=== PATIENT | male | born 1990 | race Hispanic/Latino ===

== ENCOUNTER 2024-12-27 14:17 | Emergency (ER) | payer OTHER ==
[2024-12-27] MEDS ORDERED: HYDROCODONE/APAP 5/325 MG TAB ONE (15:26)
--- NOTE | 2024-12-27 16:33 | RAD REPORT ---
Extremity Venous Uni Ltd CLINICAL INDICATION: Male, 34 years old.Pain;Swelling TECHNIQUE: Complete duplex sonography of the lower extremity veins was performed of the affected limb . The examination included compression for vein patency, color Doppler imaging and flow augmentation in response to distal compression of the distal external iliac, common femoral, femoral, popliteal, peroneal, tibial and great saphenous veins. [id number]. COMPARISON: No prior exams FINDINGS: Duplex sonography imaging demonstrates all deep veins examined to be fully compressible with spontane ous, phasic and augmented flow in the affected limb. IMPRESSION: No evidence of deep venous thrombosis in the left lower extremity.
--- NOTE | 2024-12-27 16:37 | RAD REPORT ---
EXAM: Knee Left 3 View INDICATION: fall;Pain COMPARISON: None FINDINGS: Tibial plateau fracture which is likely a split component laterally with transverse component extendi ng into the medial tibial plateau.. Moderate knee effusion. Distal femur appears intact. Other: n/a IMPRESSION: Tibial plateau fracture involving the medial and lateral tibial plateau. Recommend CT for further eddie luation.
--- NOTE | 2024-12-27 18:31 | RAD REPORT ---
EXAMINATION: Knee Left Wo Con CLINICAL INDICATION: Male, 34 years old.Tibial plateau fracture TECHNIQUE: CT above extremity was performed without contrast. Reformats were performed. One or more o f the following dose reduction techniques were used: Automated exposure control, adjustment of the mA and/or kV according to patient size, and/or iterative reconstruction. Unless otherwise specified, incidental findings do not require dedicated imaging follow-up. [id number]. COMPARISON: Same-day knee radiograph FINDINGS: Complex fracture involving the tibial plateau. There is a split type component involving the lateral tibial plateau with approximately 3 mm of articular surface depression at the lateral tibial plateau. There is a transverse component which extends into the medial tibial metaphysis and involves the anterior medial tibial plateau. There is a nonaggressive lesion in the posterior medial aspect of the tibial metaphysis which may represent a benign fibro-osseous lesion. The proximal fibula is in tact. Lipohemarthrosis is present. The patella is intact. The femur is intact. IMPRESSION: Tibial plateau fracture involving both the medial and lateral tibial plateau. The lateral tibial plat eau has a split-type fracture with some articular surface depression.
--- NOTE | 2024-12-27 18:34 | ER ---
Nurse's Notes [facility] Name: Maximo Taylor Age: 34 yrs Sex: Male : 1990 Arrival Date: 12/27/2024 Time: 14:17 Bed DX3 Private MD: Diagnosis: Left tibial plateau fracture;Fall on same level, unspecified Presentation: 12/27 15:13 Chief complaint: Tripped on concrete and landed on left knee 2 nights ago, c/o left hb knee pain and swelling 8/10. Unable to bear weight on left leg. Coronavirus screen: At this time, the client does not indicate any symptoms associated with coronavirus-19. Ebola Screen: No symptoms or risks identified at this time. Initial Sepsis Screen: Does the patient meet any 2 criteria? No. Patient's initial sepsis screen is negative. Does the patient have a suspected source of infection? No. Patient's initial sepsis screen is negative. Risk Assessment: Do you want to hurt yourself or someone else? Patient reports no desire to harm self or others. Onset of symptoms was December 25, 2024. 15:13 Method Of Arrival: Wheelchair hb 15:13 Acuity: MACK 4 hb Triage Assessment: 19:24 General: Appears uncomfortable, Behavior is calm, cooperative. Pain: Complains of pain ha1 in lateral aspect of left knee Pain currently is 10 out of 10 on a pain scale. Quality of pain is described as throbbing. Neuro: Level of Consciousness is awake, alert, obeys commands, Oriented to person, place, time, situation. Cardiovascular: Capillary refill < 3 seconds Patient's skin is warm and dry. Respiratory: Airway is patent Respiratory effort is even, unlabored, Respiratory pattern is regular, symmetrical. Historical: - Allergies: 15:16 No Known Allergies; hb - Home Meds: 15:16 None [Active]; hb - PMHx: 15:16 None; hb - PSHx: 15:16 None; hb - Immunization history:: Adult Immunizations up to date. - Infectious Disease History:: Denies. - Social history:: Smoking status: Patient denies any tobacco usage or history of. Screenin:[address] [facility] ED Fall Risk Assessment (Adult) History of falling in the last 3 months, ha1 including since admission No falls in past 3 months (0 pts) Confusion or Disorientation No (0 pts) Intoxicated or Sedated No (0 pts) Impaired Gait Yes (1 pt) Mobility Assist Device Used Yes (1 pt) Altered Elimination No (0 pt) Score/Fall Risk Level 0 - 2 = Low Risk Oriented to surroundings, Maintained a safe environment, Educated pt \T\ family on fall prevention, incl call for assistance when getting out of bed, Hourly rounding (assess needs \T\ fall precautionary measures) done. Abuse screen: Denies threats or abuse. Denies injuries from another. Nutritional screening: No deficits noted. Tuberculosis screening: No symptoms or risk factors identified. Assessment: 19:23 Reassessment: Patient and/or family updated on plan of care and expected duration. Pain ha1 level reassessed. Patient is alert, oriented x 3, equal unlabored respirations, skin warm/dry/pink. Patient states feeling better. Patient states symptoms have improved. Vital Signs: 15:13 BP 153 / 101; Pulse 122; Resp 16; Temp 97.2; Pulse Ox 100% on R/A; Weight 99.79 kg; hb Height 5 ft. 10 in. ; Pain 8/10; 19:23 BP 151 / 98; Pulse 102; Resp 20 S; Pulse Ox 98% on R/A; ha1 15:13 Body Mass Index 31.57 (99.79 kg, 177.8 cm) hb 15:13 Pain Scale: Adult hb ED Course: 14:19 Patient arrived in ED. mr 14:43 Nick Peng DO is Attending Physician. ms3 15:11 Patient has correct armband on for positive identification. Bed in low position. Call ha1 light in reach. Side rails up X 1. 15:16 Triage completed. hb 15:17 Arm band placed on. hb 16:01 Extremity Venous Uni Ltd US In Process Unspecified. EDMS 16:11 Knee Left 3 View XRAY In Process Unspecified. EDMS 17:14 Patient placed in a hallway bed, in a wheelchair. ll1 17:38 Attending Physician role handed off by Nick Peng DO ec2 17:38 Og Montoya MD is Attending Physician. ec2 18:13 Knee Left Wo Con In Process Unspecified. EDMS 18:33 Tristian Aparicio MD is Referral Physician. ec2 19:20 Provided Education on: follow up with orthopedic . ha1 19:25 No provider procedures requiring assistance completed. Patient did not have IV access ha1 during this emergency room visit. Administered Medications: 15:33 Drug: HYDROcodone-acetaminophen PO 5 mg-325 mg 1 tabs PO once Route: PO; jl7 18:20 Follow up: Response: No adverse reaction; Marked relief of symptoms ha1 19:10 Drug: oxyCODONE PO 10 mg PO once Route: PO; ha1 19:22 Follow up: Response: No adverse reaction; Marked relief of symptoms; Pain is decreased; ha1 RASS: Alert and Calm (0) Medication: 19:25 VIS not applicable for this client. ha1 Outcome: 18:33 Discharge ordered by . ec2 19:25 Discharged to home via wheelchair, with crutches, with family, ha1 19:25 Condition: stable 19:25 Discharge instructions given to patient, family, Instructed on discharge instructions, follow up and referral plans. medication usage, Demonstrated understanding of instructions, follow-up care, medications, Prescriptions given X 1, 19:26 Patient left the ED. ha1 Signatures: Dispatcher [employer] EDMS Gisela Gutierrez, Reg Reg mr WestonNatalee, RN Chapis Garner RN RN jl7 Jami Anand RN RN ll1 Nick Peng DO DO ms3 Maida Moran RN RN ha1 gO Montoya MD MD ec2
--- NOTE | 2024-12-27 18:34 | EDPHYS ---
Physician Documentation [facility] Name: Maximo Taylor Age: 34 yrs Sex: Male : 1990 Arrival Date: 12/27/2024 Time: 14:17 Bed DX3 Private MD: ED Physician Og Montoya HPI: 12/27 15:29 This 34 yrs old Male presents to ER via Wheelchair with complaints of Left ms3 leg/knee pain. 15:29 34-year-old male with no past medical history presents to the emergency department for ms3 left knee pain and left calf pain after falling on Friday night. Patient states his l left calf locked up causing him to fall. Patient states his discomfort is an 8/10 and movement makes the pain worse. Patient denies any alleviating factors.. Historical: - Allergies: 15:16 No Known Allergies; hb - Home Meds: 15:16 None [Active]; hb - PMHx: 15:16 None; hb - PSHx: 15:16 None; hb - Immunization history:: Adult Immunizations up to date. - Infectious Disease History:: Denies. - Social history:: Smoking status: Patient denies any tobacco usage or history of. ROS: 15:29 Constitutional: Negative for fever, and chills. Cardiovascular: Negative for chest ms3 pain, and palpitations. Respiratory: Negative for shortness of breath, cough, wheezing, and pleuritic chest pain, Abdomen/GI: Negative for abdominal pain, nausea, vomiting, diarrhea, and constipation, 15:29 MS/extremity: Positive for pain, of the left calf and knee, Exam: 15:29 Constitutional: This is a well developed, well nourished patient who is awake, alert, ms3 and in no acute distress. Cardiovascular: Regular rate and rhythm with a normal S1 and S2. No gallops, murmurs, or rubs. Normal PMI, no JVD. No pulse deficits. Respiratory: Lungs have equal breath sounds bilaterally, clear to auscultation and percussion. No rales, rhonchi or wheezes noted. No increased work of breathing, no retractions or nasal flaring. Abdomen/GI: Soft, non-tender, with normal bowel sounds. No distension or tympany. No guarding or rebound. No evidence of tenderness throughout. Skin: Warm, dry with normal turgor. Normal color with no rashes, no lesions, and no evidence of cellulitis. 15:29 Musculoskeletal/extremity: Extremities: noted in the left knee: pain, swelling, tenderness, noted in the left calf: pain, swelling, tenderness, 15:29 Musculoskeletal/extremity: Extremities: Left DP and PT 2+/4, ms3 Vital Signs: 15:13 BP 153 / 101; Pulse 122; Resp 16; Temp 97.2; Pulse Ox 100% on R/A; Weight 99.79 kg; hb Height 5 ft. 10 in. ; Pain 8/10; 19:23 BP 151 / 98; Pulse 102; Resp 20 S; Pulse Ox 98% on R/A; ha1 15:13 Body Mass Index 31.57 (99.79 kg, 177.8 cm) hb 15:13 Pain Scale: Adult hb MDM: 15:41 Medical Screening Exam initiated ms3 17:39 Differential diagnosis: closed fracture, contusion, Sprain/ Strain vs DVT. Transition ms3 of care: After a detail discussion of the patient's case, care is transferred to Og Montoya MD. 17:41 Data reviewed: vital signs, nurses notes. ED course: Patient signed out to me by. ec2 Physician, brief arrives today for evaluation of knee pain after recent fall and injury. Plan to follow-up CT scan. Patient with known tibial plateau fracture.. 02 15:29 Order name: Knee Left 3 View XRAY; Complete Time: 17:12 ms3 12/27 15:29 Order name: Extremity Venous Uni Ltd US; Complete Time: 17:12 ms3 12/27 17:30 Order name: Knee Left Wo Con; Complete Time: 18:33 EDMS 12/27 17:17 Order name: Knee Immobilizer; Complete Time: 19:23 ms3 12/27 17:17 Order name: Crutches; Complete Time: 19:23 ms3 Administered Medications: 15:33 Drug: HYDROcodone-acetaminophen PO 5 mg-325 mg 1 tabs PO once Route: PO; jl7 18:20 Follow up: Response: No adverse reaction; Marked relief of symptoms ha1 19:10 Drug: oxyCODONE PO 10 mg PO once Route: PO; ha1 19:22 Follow up: Response: No adverse reaction; Marked relief of symptoms; Pain is decreased; ha1 RASS: Alert and Calm (0) Disposition Summary: 12/27/24 18:33 Discharge Ordered Notes: Location: Home ec2 Condition: Stable ec2 Diagnosis - Left tibial plateau fracture ec2 - Fall on same level, unspecified ec2 Followup: ms3 - With: Tristian Aparicio MD - When: 2 - 3 days - Reason: Recheck today's complaints Discharge Instructions: - Discharge Summary Sheet ms3 - Fall Prevention in the Home, Adult ms3 - Nondisplaced Tibial Plateau Fracture ms3 Forms: - Medication Reconciliation Form ec2 - Antibiotic Education ec2 - Prescription Opioid Use ec2 - Patient Portal Instructions ec2 - Leadership Thank You Letter ec2 Prescriptions: - acetaminophen-codeine 300-30 mg Oral tablet - take 1 tablet ORAL route every 4 hours; 15 tablet; Refills: 0, Product ec2 Selection Permitted Signatures: Dispatcher [employer] EDNatalee Metz RN RN Chapis Castro RN RN jl7 Nick Peng DO DO ms3 Maida Moran RN RN ha1 Og Montoya MD MD ec2 Corrections: (The following items were deleted from the chart) 15:30 15:30 Extremity Venous Uni Ltd+[email or web address].BRZ ordered. EDMS EDMS 17:30 17:17 CT LEFT KNEE WO CONTRAST ordered. EDMS EDMS
[2024-12-27] MEDS ORDERED: OXYCODONE *CR* 10 MG TAB PO ONE (19:06)
[2024-12-27 19:31] VITALS: TEMP 97.2
[2024-12-27 19:32] VITALS: BP 151/98; O2SAT 98
== END 2024-12-27 19:26 | disposition home or self-care (01) ==
LOC: ER 14:17
DX: S82.142A Displaced bicondylar fracture of left tibia, initial encounter for closed fracture (principal); W18.30XA Fall on same level, unspecified, initial encounter
CPT/HCPCS: 73700; 93971; 99283